=== PATIENT | male | born 1950 | race Caucasian/White ===

== ENCOUNTER → 2020-01-20 09:17 | Outpatient (BNVA) | payer MEDICARE, SELFPAY | PROVIDERS: PCP Internal Medicine; Visit Provider Orthopaedic Surgery | DX: M25.511 Pain in right shoulder (principal); Z96.611 Presence of right artificial shoulder joint | CPT/HCPCS: 99213 ==

== ENCOUNTER 2020-11-03 11:20 | Outpatient (REF) | payer MEDICARE, SELFPAY ==
--- NOTE | ~2020-11-03 | XR_ITS ---
EXAMINATION: XR SHOULDER, LEFT CLINICAL INFORMATION: Left shoulder pain COMPARISON: None TECHNIQUE: 3 views of the left shoulder FINDINGS: There appears be faint calcification about the region of some insertion supraspinatus tendon which may be related to calcific tendinitis. There is some spurring noted about the inferior glenohumeral joint with subchondral cyst formation. Joint spaces maintained. No widening of the coracoclavicular space. XR/XR shoulder LT min 2V IMPRESSION: Calcific tendinitis. Degenerative change inferior glenohumeral joint.
== END 2020-11-03 11:21 | disposition home or self-care (01) ==
LOC: HO.HOSX 11:20
PROVIDERS: PCP Internal Medicine; Visit Provider Orthopaedic Surgery
DX: M75.42 Impingement syndrome of left shoulder (principal)
CPT/HCPCS: 20610; 73030; 99212; J1040